=== PATIENT | male | born 1945 | race Caucasian/White ===

== ENCOUNTER 2016-08-09 11:11 | Emergency (ER) | payer OTHER ==
--- NOTE | ~2016-08-09 | CT2 ---
[facility] A Service of [facility] & [facility] RADIOLOGY TEXT RESULTS PATIENT: IGNACIO WEAVER LOCATION: [facility] : 43 UNIT #: [id number] AGE: [address]: Lyla Chino MD SEX: M ORDER DR: [id number] [facility] [address] [place], [place] [address] [id number] E MR#: [id number] Acc #: [id number] NAME: IGNACIO WEAVER. : 1945 SEX: M STUDY DATE/TIME: 08/09/2016 11:33 UNIT: [facility] ROOM: STUDY DESCRIPTION: CT Abd and Pelv W Cont Attending Physician: Lyla Chino M.D. Ordering Physician: Lyla Chino M.D. Primary Care Physician: Farida Valdes M.D. MEDICAL IMAGING REPORT This report is preliminary unless electronic signature is present EXAM CT of the abdomen and pelvis with contrast INDICATIONS Abdominal pain starting last night. Patient has a history of pancreatitis. TECHNIQUE Axial CT imaging was obtained from the dome of the diaphragm through the symphysis pubis following the administration of intravenous contrast material. This CT exam was performed with one or more of the following radiation dose reduction techniques: Automatic exposure control, adjustment of mA and/or kV according to patient size, and iterative reconstruction. FINDINGS Images through the lung bases demonstrates some mild dependant atelectasis. There is a small hiatal hernia. Patient is suspected to have some hepatic steatosis. There is cholelithiasis without any evidence of acute cholecystitis. Spleen appears unremarkable, as is the proximal small bowel. Adrenal glands are within normal limits. Tiny low-attenuation lesion is seen within the inferior pole of the right kidney; this is favored to represent a cyst. While patient reportedly has a history of pancreatitis, the pancreas appears normal on these images. The appendix is visualized and is within normal limits. Prostate gland contains some dystrophic calcifications and is enlarged. There is colonic diverticulosis without any convincing evidence of diverticulitis. Review of bony windows does not demonstrate any aggressive osseous abnormalities. There is probably also a tiny cyst within the inferior pole of the left kidney. STS. [facility] A Service of [facility] RADIOLOGY TEXT RESULTS PATIENT: IGNACIO WEAVER LOCATION: [facility] : 43 UNIT #: [id number] AGE: [address]: Lyla Chino MD SEX: M ORDER DR: IMPRESSION 1. Cholelithiasis without evidence of acute cholecystitis. 2. Suspected diffuse hepatic steatosis, although this is difficult to fully assess on this single-phase examination. 3. Patient reportedly has a history of pancreatitis, although there is no CT evidence of pancreatitis on today's study. Certainly, no peripancreatic fluid collections are seen and the pancreas enhances homogeneously. 4. The appendix is visualized and is within normal limits. 5. Colonic diverticulosis without any evidence of diverticulitis. Dictated by... Nena Reeves M.D. THIS IS AN ELECTRONICALLY VERIFIED REPORT Nena Reeves M.D. at 08/10/2016 4:35 PM AFF/psc TD: 08/09/2016 18:51 JOB #: [id number] MEDICAL IMAGING REPORT Page 1 of 1 COPY
--- NOTE | ~2016-08-09 | CR72 ---
[facility] A Service of [facility] & [facility] RADIOLOGY TEXT RESULTS PATIENT: IGNACIO WEAVER LOCATION: [facility] : 43 UNIT #: [id number] AGE: [address]: Lyla Chino MD SEX: M ORDER DR: [id number] [facility] [address] [place], [place] [address] [id number] E MR#: [id number] Acc #: [id number] NAME: IGNACIO WEAVER. : 1945 SEX: M STUDY DATE/TIME: 08/09/2016 11:12 UNIT: [facility] ROOM: STUDY DESCRIPTION: CR Chest Single View Portable Attending Physician: Lyla Chino M.D. Ordering Physician: Lyla Chino M.D. Primary Care Physician: Farida Valdes M.D. MEDICAL IMAGING REPORT This report is preliminary unless electronic signature is present EXAM Portable chest radiograph INDICATION Fever 1 week. FINDINGS Heart size is within normal limits for portable technique. No pneumothorax, pleural effusion or acute infiltrate is identified. Patient does have a stable calcified granuloma at the left lung base. Dictated by... Nena Reeves M.D. THIS IS AN ELECTRONICALLY VERIFIED REPORT Nena Reeves M.D. at 08/10/2016 4:35 PM AFF/psc TD: 08/09/2016 18:37 JOB #: [id number] MEDICAL IMAGING REPORT Page 1 of 1 COPY
[2016-08-09 10:00] LABS: URINE SOURCE CLEAN CATCH
[2016-08-09 10:04] LABS: URINE APPEARANCE CLEAR; URINE BILIRUBIN NEG (NEG); URINE BLOOD 1+ (NEG); URINE COLOR YELLOW; URINE GLUCOSE >1000 MG/DL (NEG); URINE KETONE 1+ (NEG); URINE LEUKOCYTE ESTERASE NEG (NEG); URINE NITRATE NEG (NEG); URINE PROTEIN TRACE (NEG); URINE SPECIFIC GRAVITY 1.036 (1.003-1.035)
[2016-08-09 10:05] LABS: BASOPHIL# 0.1 X10e3 (0-0.3); BASOPHIL% 0.5 % (0-2.5); EOSINOPHIL% 0.1 % (0.0-7.0); HEMATOCRIT 43.2 % (38.0-50.0); HEMOGLOBIN 14.5 gm/dL (13.0-16.0); LYMPHOCYTE# 0.8 X10e3 (1.0-3.5); LYMPHOCYTE% 7.8 % (17.0-45.0); MEAN CELL VOLUME 89.5 FL (83-96); MEAN CORPUSCULAR HEMOGLOBIN 30.1 PG (28-34); MEAN CORPUSCULAR HGB CONC 33.6 g/dL (30-36); MEAN PLATELET VOLUME 8.2 FL (6.5-11.5); MONOCYTE# 0.4 X10e3 (0-1.0); MONOCYTE% 3.5 % (3.0-12.0); NEUTROPHIL# 9.7 X10e3 (1.5-7.1); NEUTROPHIL% 88.1 % (40-75); PLATELET COUNT 150 X10e3 (140-420); RED BLOOD COUNT 4.83 X10e (3.90-5.60); RED CELL DISTRIBUTION WIDTH 13.3 % (11.0-15.5)
[2016-08-09 10:06] LABS: URINE BACTERIA AUWI NEG (NEGATIVE); URINE SQUAMOUS EPITHELIAL CELL NONE SEEN /[HPF]; UWBCS1 AUWI 0-2 (0-5)
[2016-08-09 10:10] LABS: DIFF IND NO
[2016-08-09 10:13] LABS: CULTURE INDICATED? NO
[2016-08-09 10:34] LABS: ALBUMIN SERUM 4.3 g/dL (3.5-5.0); BILIRUBIN, DIRECT 0.2 mg/dL (0.0-0.2); BILIRUBIN,INDIRECT 0.7 mg/dL (0.0-0.9); BILIRUBIN,TOTAL 0.9 mg/dL (0.2-2.0); BUN/CREATININE RATIO 18.88; CALCIUM SERUM 9.3 mg/dL (8.4-10.2); CREATININE SERUM 0.9 mg/dL (0.6-1.4); PROTEIN TOTAL SERUM 7.5 g/dL (6.0-8.3)
[~2016-08-09 11:11] MED LIST: ASPIRIN81 M1 PO; ASPIRIN81 M2 PO; AVAPRO150 MG PO; BENICAR PO; CREON 101 CA1 PO; CREON 101 CAP PO; DIOVAN PO; OMEPRAZOLE40 M1 PO; OMEPRAZOLE40 MG PO
[2016-08-09 11:47] LABS: AMPHETAMINE NEG (NEG); BARBITURATES NEG (NEG); BENZODIAZEPINES NEG (NEG); COCAINE NEG (NEG); MARIJUANA NEG (NEG); OPIATES NEG (NEG); TRICYCLIC ANTIDEPRESSANTS NEG (NEG); U METHADONE NEG (NEG)
== END 2016-08-09 12:52 | disposition home or self-care (01) ==
LOC: CED 11:11
PROVIDERS: Emergency Medicine
DX: K85.90 Acute pancreatitis without necrosis or infection, unspecified (principal); K86.1 Other chronic pancreatitis; I10 Essential (primary) hypertension; Z98.890 Other specified postprocedural states
CPT/HCPCS: 36415; 71010; 74177; 80048; 80076; 80307; 81003; 83690; 85025; 96361; 96374; 96375; 99284; G0480; J1170; J2405; Q9967

== ENCOUNTER 2016-09-26 00:32 | Emergency (ER) | payer OTHER ==
--- NOTE | ~2016-09-26 | EKG ---
PATIENT: IGNACIO WEAVER UNIT #: [id number] Ventricular Rate: 57 BPM Atrial Rate: 57 BPM P-R Interval: 134 ms QRS Duration: 102 ms Q-T Interval: 496 ms QTC Calculation(Bezet): 482 ms P [place]: 25 degrees Calculated R [place]: 24 degrees Calculated T [place]: 39 degrees Diagnosis Line: Sinus bradycardia Diagnosis Line: Prolonged QT Diagnosis Line: Abnormal ECG Diagnosis Line: No previous ECGs available Diagnosis Line: Confirmed by BRYAN PRIEST MD ([id number]) on Diagnosis Line: 09/26/2016 4:32:10 PM INTERPRETING MD: ZAYDA VILLEGAS
--- NOTE | ~2016-09-26 | CT2 ---
[facility] A Service of [facility] RADIOLOGY TEXT RESULTS PATIENT: IGNACIO WEAVER LOCATION: [facility] : 43 UNIT #: [id number] AGE: [address]: Eduardo Paiz DO SEX: M ORDER DR: [id number] [facility] [address] [place], [place] [address] [id number] E MR#: [id number] Acc #: [id number] NAME: IGNACIO WEAVER. : 1945 SEX: M STUDY DATE/TIME: 09/26/2016 6:26 UNIT: [facility] ROOM: STUDY DESCRIPTION: CT Abd and Pelv W Cont Attending Physician: Eduardo Paiz D.O. Ordering Physician: Carolin Godinez M.D. Primary Care Physician: Farida Valdes M.D. MEDICAL IMAGING REPORT This report is preliminary unless electronic signature is present EXAM CT abdomen and pelvis with contrast 09/26/2016 HISTORY 70-year-old male with abdominal pain and nausea, vomiting beginning yesterday. HISTORY Chronic pancreatitis. COMPARISON STUDIES CT abdomen and pelvis 08/09/2016. TECHNIQUE Helical scan performed through the abdomen and pelvis following administration of oral IV contrast. Coronal and sagittal reformatted images. This CT exam was performed with one or more of the following radiation dose reduction techniques: automatic exposure control, adjustment of mA and/or kV according to patient size, and iterative reconstruction. FINDINGS Visualized lung bases are unremarkable. Small hiatal hernia. Hepatic steatosis again noted. The spleen, pancreas, both adrenal glands, and both kidneys appear within normal limits. No CT evidence of acute pancreatitis. No peripancreatic fluid collections or ductal dilatation. Cholelithiasis is again noted. Abdominal aorta normal in course and caliber without dissection. Small bowel is unremarkable without obstruction. Appendix is normal. Uncomplicated pancolonic diverticulosis. No free fluid or free air. [facility] A Service of [facility] RADIOLOGY TEXT RESULTS PATIENT: IGNACIO WEAVER LOCATION: [facility] : 43 UNIT #: [id number] AGE: [address]: Eduardo Paiz DO SEX: M ORDER DR: Urinary bladder is unremarkable. Prostate gland is enlarged. No free pelvic fluid. No acute bony abnormality. IMPRESSION 1. No CT evidence of acute pancreatitis. No peripancreatic fluid collections or pancreatic ductal dilatation. 2. Cholelithiasis. 3. Hepatic steatosis. 4. Small hiatal hernia. 5. Uncomplicated pancolonic diverticulosis. 6. Normal appendix. 7. Prostate gland enlargement. Dictated by... John Tineo M.D. THIS IS AN ELECTRONICALLY VERIFIED REPORT John Tineo M.D. at 09/27/2016 6:19 AM JOY/zonia TD: 09/26/2016 09:18 JOB #: [id number] MEDICAL IMAGING REPORT Page 1 of 1 COPY
[2016-09-26] MEDS ORDERED: CREON DR 24,001 EACH PO (00:36)
[2016-09-26] MEDS ORDERED: IRBESARTAN150 MG PO (00:37)
[2016-09-26] MEDS ORDERED: PRILOSEC PO (00:37)
[2016-09-26] MEDS ORDERED: LO-DOSE ASPIRIN81 M1 PO (00:37)
[2016-09-26 05:14] LABS: BASOPHIL# 0.1 X10e3 (0-0.3); BASOPHIL% 0.6 % (0-2.5); HEMATOCRIT 43.9 % (38.0-50.0); HEMOGLOBIN 14.5 gm/dL (13.0-16.0); LYMPHOCYTE# 0.6 X10e3 (1.0-3.5); LYMPHOCYTE% 5.8 % (17.0-45.0); MEAN CELL VOLUME 89.4 FL (83-96); MEAN CORPUSCULAR HEMOGLOBIN 29.6 PG (28-34); MEAN CORPUSCULAR HGB CONC 33.1 g/dL (30-36); MEAN PLATELET VOLUME 8.4 FL (6.5-11.5); MONOCYTE# 0.3 X10e3 (0-1.0); MONOCYTE% 2.4 % (3.0-12.0); NEUTROPHIL% 91.2 % (40-75); PLATELET COUNT 116 X10e3 (140-420); RED BLOOD COUNT 4.91 X10e (3.90-5.60)
[2016-09-26 05:26] LABS: DIFF IND NO
[2016-09-26 05:51] LABS: ALBUMIN SERUM 4.6 g/dL (3.5-5.0); BILIRUBIN, DIRECT 0.2 mg/dL (0.0-0.2); BILIRUBIN,TOTAL 1.2 mg/dL (0.2-2.0); CALCIUM SERUM 9.3 mg/dL (8.4-10.2); GLOM FILT RATE Estimated 74.9 mL/min (>60); POTASSIUM 4.2 mmol/L (3.5-5.1); PROTEIN TOTAL SERUM 7.6 g/dL (6.0-8.3)
[2016-09-26 07:15] LABS: URINE SOURCE CLEAN CATCH
[2016-09-26 07:23] LABS: URINE APPEARANCE CLEAR; URINE BILIRUBIN NEG (NEG); URINE BLOOD NEG (NEG); URINE COLOR YELLOW; URINE GLUCOSE 500 MG/DL (NEG); URINE KETONE 2+ (NEG); URINE LEUKOCYTE ESTERASE NEG (NEG); URINE NITRATE NEG (NEG); URINE PH 7.5 (5-8); URINE PROTEIN NEG (NEG); URINE SPECIFIC GRAVITY 1.042 (1.003-1.035)
[2016-09-26 07:28] LABS: CULTURE INDICATED? NO
== END 2016-09-26 08:57 | disposition home or self-care (01) ==
LOC: CED 00:32
DX: R10.9 Unspecified abdominal pain (principal); I10 Essential (primary) hypertension; R79.89 Other specified abnormal findings of blood chemistry
CPT/HCPCS: 36415; 74177; 80048; 80076; 81003; 82150; 83690; 84484; 85025; 93005; 96361; 96374; 96375; 99284; J1170; J2270; J2405; Q9967

== ENCOUNTER 2016-10-31 08:36 | Emergency (ER) | payer OTHER ==
--- NOTE | ~2016-10-31 | US67 ---
[facility] A Service of [facility] & [facility] RADIOLOGY TEXT RESULTS PATIENT: IGNACIO WEAVER LOCATION: [facility] : 43 UNIT #: [id number] AGE: [address]: Kash Joiner MD SEX: M ORDER DR: [id number] [facility] [address] [place], [place] [address] [id number] E MR#: [id number] Acc #: [id number] NAME: IGNACIO WEAVER. : 1945 SEX: M STUDY DATE/TIME: 10/31/2016 9:35 UNIT: [facility] ROOM: STUDY DESCRIPTION: Gallbladder Attending Physician: Kash Joiner M.D. Ordering Physician: Kash Joiner M.D. Primary Care Physician: Farida Valdes M.D. MEDICAL IMAGING REPORT This report is preliminary unless electronic signature is present EXAM Gallbladder ultrasound HISTORY Right upper quadrant pain for 6 days radiating to the back. FINDINGS Longitudinal and transverse sonograms of the right upper quadrant were obtained. The liver is sonographically normal. There is sludge and gallstones dependently within the gallbladder. Gallbladder wall is not thickened. There is no pericholecystic fluid. There is no evidence of intra or extrahepatic biliary dilatation. Common duct measures 4.0 mm. No fluid collections are seen in the right upper quadrant. The right kidney is normal measuring 10.9 cm in diameter. The pancreas was not well seen. CONCLUSION Cholelithiasis. No evidence of gallbladder wall thickening and no evidence of surrounding fluid to suggest cholecystitis. Sonogram is otherwise normal. Dictated by... Jean Claude Patrick M.D. THIS IS AN ELECTRONICALLY VERIFIED REPORT Jean Claude Patrick M.D. at 11/02/2016 8:39 AM Kiel TD: 10/31/2016 14:27 JOB #: [id number] MEDICAL IMAGING REPORT Page 1 of 1 COPY
[~2016-10-31 08:36] MED LIST changes: +CREON DR 24,001 EACH PO; +IRBESARTAN150 MG PO; +LO-DOSE ASPIRIN81 M1 PO; +PRILOSEC PO
[2016-10-31 09:39] LABS: BASOPHIL% 0.5 % (0-2.5); EOSINOPHIL# 0.1 X10e3 (0-0.7); EOSINOPHIL% 2.2 % (0.0-7.0); HEMATOCRIT 41.8 % (38.0-50.0); HEMOGLOBIN 13.9 gm/dL (13.0-16.0); LYMPHOCYTE# 0.8 X10e3 (1.0-3.5); LYMPHOCYTE% 16.3 % (17.0-45.0); MEAN CELL VOLUME 89.7 FL (83-96); MEAN CORPUSCULAR HEMOGLOBIN 29.9 PG (28-34); MEAN CORPUSCULAR HGB CONC 33.3 g/dL (30-36); MEAN PLATELET VOLUME 8.7 FL (6.5-11.5); MONOCYTE# 0.4 X10e3 (0-1.0); MONOCYTE% 7.6 % (3.0-12.0); NEUTROPHIL# 3.6 X10e3 (1.5-7.1); NEUTROPHIL% 73.4 % (40-75); PLATELET COUNT 109 X10e3 (140-420); RED BLOOD COUNT 4.66 X10e (3.90-5.60); RED CELL DISTRIBUTION WIDTH 14.2 % (11.0-15.5); WHITE BLOOD COUNT 4.9 X10e3 (4.0-10.5)
[2016-10-31 09:47] LABS: DIFF IND NO
[2016-10-31 09:56] LABS: URINE SOURCE CLEAN CATCH
[2016-10-31 10:01] LABS: ALBUMIN SERUM 4.6 g/dL (3.5-5.0); BILIRUBIN, DIRECT 0.2 mg/dL (0.0-0.2); BILIRUBIN,INDIRECT 0.9 mg/dL (0.0-0.9); BILIRUBIN,TOTAL 1.1 mg/dL (0.2-2.0); CALCIUM SERUM 9.4 mg/dL (8.4-10.2); CREATININE SERUM 0.9 mg/dL (0.6-1.4); GLOM FILT RATE Estimated 84.4 mL/min (>60); POTASSIUM 4.4 mmol/L (3.5-5.1); PROTEIN TOTAL SERUM 7.6 g/dL (6.0-8.3)
[2016-10-31 10:03] LABS: URINE APPEARANCE CLEAR; URINE BILIRUBIN NEG (NEG); URINE BLOOD NEG (NEG); URINE COLOR YELLOW; URINE GLUCOSE NEG (NEG); URINE KETONE TRACE (NEG); URINE LEUKOCYTE ESTERASE NEG (NEG); URINE NITRATE NEG (NEG); URINE PROTEIN NEG (NEG); URINE SPECIFIC GRAVITY 1.024 (1.003-1.035)
[2016-10-31 10:11] LABS: CULTURE INDICATED? NO
== END 2016-10-31 11:44 | disposition home or self-care (01) ==
LOC: CED 08:36
PROVIDERS: Emergency Medicine
DX: R10.11 Right upper quadrant pain (principal); R11.0 Nausea; Z79.82 Long term (current) use of aspirin; Z79.899 Other long term (current) drug therapy
CPT/HCPCS: 36415; 76705; 80048; 80076; 81003; 82150; 83690; 85025; 96361; 96372; 96374; 96375; 99284; J1170; J2405; J2550

== ENCOUNTER 2016-11-05 06:26 | Inpatient (IN) | payer OTHER ==
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
--- NOTE | ~2016-11-05 | DS ---
Unit #: [id number] #: [id number] Patient: IGNACIO WEAVER [id number] [address] [address] [id number] I MR#: [id number] NAME: IGNACIO WEAVER ROOM: 479 Age: 71 Sex: M Admission Date: 11/05/2016 : 1945 Discharge Date: 11/09/2016 Attending Physician: Franco Mcmullen M.D. Primary Care Physician: Farida Valdes M.D. DISCHARGE SUMMARY DIAGNOSIS Cholecystitis. PROCEDURE Open cholecystectomy. HOSPITAL COURSE The patient is a 71-year-old gentleman who presented with choledocholithiasis, presented with cholecystitis. He underwent attempted laparoscopic cholecystectomy, ended up undergoing open cholecystectomy. He had a previous elevated LFT, underwent ERCP prior. His postoperatively course was relatively uncomplicated. His Brandon-Islas drained serous fluid and was removed prior to discharge. DISPOSITION The patient is discharged home in good condition. He is to follow a regular diet as tolerated. Activities were discussed. He is to follow up with Dr. Burns in two weeks. MEDICATIONS Regular home medications and [place] 7.5 mg q.4 p.r.n. Dictated by... Jean Claude Olvera M.D. ROSI/joshua TD: 11/11/2016 07:19 JOB #: [id number] DISCHARGE SUMMARY Page 1 of 1 X Jean Claude Olvera MD X DISCHARGE SUMMARY
--- NOTE | ~2016-11-05 | OR ---
Unit #: [id number] #: [id number] Patient: IGNACIO WEAVER [id number] [address] [place], [place] [address] [id number] I MR#: [id number] NAME: IGNACIO WEAVER ROOM: 479 Date of Procedure: 11/05/2016 Admission Date: 11/05/2016 Surgeon: Timothy Burns Jr., M.D. : 1945 Attending Physician: Franco Mcmullen M.D. Primary Care Physician: Farida Valdes M.D. OPERATIVE REPORT INDICATION FOR PROCEDURE The patient is a 71-year-old white male, who was admitted with evidence of acute cholecystitis. He was noted to have elevated liver function tests, underwent ERCP yesterday and stones were extracted. He was noted to have what appeared to be some pus in the gallbladder duct. It was felt that the patient did have acute cholecystitis, brought to the operating room at this time for laparoscopic cholecystectomy. His liver function tests are still somewhat elevated. PREOPERATIVE DIAGNOSES Acute and chronic cholecystitis with cholelithiasis and choledocholithiasis. POSTOPERATIVE DIAGNOSES Severe inflammatory changes of the gallbladder and in the area of the krissy hepatis with severe acute cholecystitis. ANESTHESIA General with endotracheal intubation and 0.5% Marcaine with epinephrine locally. PROCEDURES PERFORMED Laparoscopic cholecystectomy converted to open cholecystectomy with lysis of adhesions. DESCRIPTION OF PROCEDURE The patient was positioned in supine position. After being anesthetized and intubated, he was prepped and draped in routine fashion for laparoscopic cholecystectomy. A small supraumbilical incision was made approximately a cm in length. This was carried down to the fascia. The fascia and umbilicus lifted with a towel clip, and a Veress needle introduced into the abdomen. The abdomen was then inflated with CO2 gas. A 5-mm port was introduced in the abdomen followed by the camera. There was no evidence of any injury related to introduction of the port or the Veress needle. Brief intra-abdominal exploration was carried out. The patient was noted to have bilateral inguinal hernias. The one on the right was indirect and one on the left direct. Also, there was a severely inflamed gallbladder present. Liver appeared normal. Two 5-mm ports were placed laterally and 11-mm port just to the right of the upper midline. The gallbladder was lifted. Dissection was attempted in the area of the triangle of Calot and krissy hepatis, but there was severe fibrosis with acute inflammation and some bleeding at this point. After it was obvious Unit #: [id number] #: [id number] Patient: IGNACIO WEAVER the gallbladder could not be removed due to inability to identify the structures such as the cystic duct and artery and the common duct, the operation was converted to open and a transverse incision approximately 4 inch in length was made in the right subcostal region. This was carried down through subcutaneous tissue and the anterior rectus sheath with the Bovie cautery. The right rectus abdominis muscle was partially transected with the Bovie cautery and the posterior rectus sheath opened. The remainder of the sheath was opened with the cutting edge of the Bovie cautery. Intra-abdominal exploration was carried out and the patient was noted to have a large amount of blood possibly 300 to 400 mL in the right upper quadrant which was suctioned and removed and severe inflammatory changes especially in the area of the triangle of Calot. Meticulous dissection was carried out with the right angle and what appeared to be the cystic artery was hemoclipped x3, and divided. Cystic duct which was somewhat dilated and severely fibrotic was isolated and the rest of the tissue taken down with the Bovie cautery and hemoclips were appropriate. After dissecting the gallbladder down to its cystic duct area, the cystic duct was transected and the gallbladder was removed and sent to pathology. The cystic duct was then ligated approximately 0.5 cm to a cm away from the common duct. This was done with 2-0 silk suture and a large hemoclip was then placed in the area also. After hemostasis was noted, the abdomen was copiously irrigated with saline solution. All lap packs were removed and lap count correct x3 and a 10 mm Brandon-Islas drain was brought out through one of the lateral port sites, placed in the subhepatic space and sutured to the skin with 2-0 silk suture. The area of the gallbladder bed and cystic duct and cystic artery was rechecked with no evidence of any bleeding or leaks. The posterior rectus sheath was then closed with a continuous #1 Vicryl suture. Anterior rectus sheath was closed with interrupted #1 Vicryl sutures. The wound was irrigated and after hemostasis was achieved with Bovie cautery, skin edges were approximated with stainless-steel skin clips. All the other wounds were also closed with stainless-steel skin clips. Sterile dressings were applied externally. Estimated blood loss approximately 800 mL. The patient received approximately 3000 mL crystalloid solution during the procedure. Sponges and instrument counts were correct x3. One Brandon-Islas drain used as noted above. No complications. The patient was taken to recovery room with stable vital signs in satisfactory condition. Dictated by... Timothy Burns Jr., M.D. JMB/lynette TD: 11/08/2016 03:45 JOB #: [id number] CC: Farida Valdes M.D. OPERATIVE REPORT Page 1 of 1 X Timothy Burns MD X PROCEDURE OPERATIVE NOTE
--- NOTE | ~2016-11-05 | OR ---
Unit #: [id number] #: [id number] Patient: IGNACIO WEAVER [id number] [address] [place], [place] [address] [id number] I MR#: [id number] NAME: IGNACIO WEAVER. ROOM: 479 Date of Procedure: 11/06/2016 Admission Date: 11/05/2016 Surgeon: Mohit Reid M.D. : 1945 Attending Physician: Franco Mcmullen M.D. Primary Care Physician: Farida Valdes M.D. OPERATIVE REPORT . PROCEDURE PERFORMED Esophagogastroduodenoscopy to descending duodenum and endoscopic retrograde cholangiopancreatography with sphincterotomy, balloon extraction of multiple stones and pus as well as stenting of common bile duct with a 7 x 7 common bile duct stent. INDICATIONS FOR PROCEDURE The patient presented with acute abdominal pain, obstructive jaundice, gallstones suggestive of possible ductal stones and obstruction, undergoing evaluation with upper endoscopy and ERCP. MEDICATIONS Monitored anesthesia. POSTOPERATIVE FINDINGS 1. EGD exam shows mild esophagitis, hiatal hernia, as well as mild gastritis. 2. ERCP shows biliary dilation and filling defects. 3. Sphincterotomy was performed at 12 o'clock position. 4. Balloon extraction of pus and multiple stones. 5. 7 x 7 stent placed across the biliary duct. 6. PD was not injected. PLAN Antibiotics, supportive care, lap xaveir per surgery, stent removal after 6 weeks. DESCRIPTION OF PROCEDURE The patient was explained of the procedure, risks, and benefits along with risks and benefits of anesthesia. He was brought to the endoscopy room. Propofol anesthesia was given. EGD was done first. Scope was passed down the mouth into the esophagus, stomach, duodenum, and distal duodenum. Findings as described. No biopsies were taken. Gently, I pulled the scope out of the patient's mouth. He tolerated it well. At this time, we used a side-viewing ERCP scope was passed down the mouth into the esophagus, stomach. Ampulla was visualized. There was some pus coming out of the ampulla. At this point, I cannulated the bile duct selectively. After a few attempts, there were multiple filling defects in the duct. At this point, we performed a sphincterotomy at 12 o'clock Unit #: [id number] #: [id number] Patient: IGNACIO WEAVER G position. Balloon extraction was then carried out. Pus and lot of the soft stones were extracted. Cholangiogram obtained was then clear. Cystic duct was patent. Gallbladder was filling with contrast showing multiple filling defects suggestive of gallbladder stones. At this point, we placed a 7 x 7 CBD stent across the duct under fluoroscopic guidance. Pancreatic duct was not injected. Gently, I pulled the scope out. The patient's stomach was decompressed. He tolerated it well. No major complications were seen. Dictated by... Angela Garcia/lynette TD: 11/07/2016 06:02 JOB #: [id number] OPERATIVE REPORT Page 1 of 1 X Mohit Reid MD X PROCEDURE OPERATIVE NOTE
--- NOTE | ~2016-11-05 | CR84 ---
[facility] A Service of [facility] & [facility] RADIOLOGY TEXT RESULTS PATIENT: IGNACIO WEAVER LOCATION: [place] [address] : [birth year] UNIT #: [id number] AGE: [address]: Franco Mcmullen SEX: M ORDER DR: [id number] [facility] [address] [place], [place] [address] [id number] I MR#: [id number] Acc #: [id number] NAME: IGNACIO WEAVER. : 1945 SEX: M STUDY DATE/TIME: 11/06/2016 8:58 UNIT: [facility] ROOM: [facility] STUDY DESCRIPTION: CR ERCP Biliary and Pancr SI Attending Physician: Franco Mcmullen M.D. Ordering Physician: Mohit Reid M.D. Primary Care Physician: Farida Valdes M.D. MEDICAL IMAGING REPORT This report is preliminary unless electronic signature is present EXAM ERCP, 11/06/2016. HISTORY Common bile duct stones and obstruction. Right upper quadrant abdominal pain since 10/25/2016, radiating to the back. Gallbladder ultrasound 10/31/2016 demonstrated cholelithiasis. FINDINGS ERCP was performed by Dr. Reid. Three spot film radiographs of the right upper quadrant were obtained and 2 minutes and 24 seconds of fluoroscopy time was utilized. The pancreatic duct was not injected. Contrast injection of the biliary tree shows dilatation of the common bile duct. Filling defects suggesting stones were present in the duct. Sphincterotomy was performed by Dr. Reid. Balloon catheter was pulled retrograde through the common duct, removing stones as per Dr. Reid. A stent was then placed in the common bile duct at the end of the exam. Dictated by... Rashad Arredondo M.D. THIS IS AN ELECTRONICALLY VERIFIED REPORT Rashad Arredondo M.D. at 11/07/2016 2:16 PM RASHI/artem TD: 11/07/2016 03:18 JOB #: [id number] MEDICAL IMAGING REPORT Page 1 of 1 COPY
[2016-11-05 08:16] LABS: ALBUMIN SERUM 4.6 g/dL (3.5-5.0); BILIRUBIN,TOTAL 3.5 mg/dL (0.2-2.0); BUN/CREATININE RATIO 21.11; CALCIUM SERUM 9.5 mg/dL (8.4-10.2); CREATININE SERUM 0.9 mg/dL (0.6-1.4); GLOM FILT RATE Estimated 84.4 mL/min (>60); POTASSIUM 4.3 mmol/L (3.5-5.1)
[2016-11-05 09:47] LABS: BASOPHIL% 0.4 % (0-2.5); EOSINOPHIL% 0.1 % (0.0-7.0); HEMATOCRIT 42.9 % (38.0-50.0); HEMOGLOBIN 14.7 gm/dL (13.0-16.0); LYMPHOCYTE# 0.5 X10e3 (1.0-3.5); LYMPHOCYTE% 8.5 % (17.0-45.0); MEAN CELL VOLUME 88.8 FL (83-96); MEAN CORPUSCULAR HEMOGLOBIN 30.4 PG (28-34); MEAN CORPUSCULAR HGB CONC 34.2 g/dL (30-36); MEAN PLATELET VOLUME 8.8 FL (6.5-11.5); MONOCYTE# 0.3 X10e3 (0-1.0); MONOCYTE% 4.8 % (3.0-12.0); NEUTROPHIL% 86.2 % (40-75); PLATELET COUNT 152 X10e3 (140-420); RED BLOOD COUNT 4.83 X10e (3.90-5.60); RED CELL DISTRIBUTION WIDTH 13.5 % (11.0-15.5); WHITE BLOOD COUNT 5.8 X10e3 (4.0-10.5)
[2016-11-05 09:51] LABS: INR 1.1; PROTHROMBIN TIME (PATIENT) 11.9 SECONDS (9.5-12.4)
[2016-11-05 09:55] LABS: DIFF IND NO
[2016-11-05 09:58] LABS: PARTIAL THROMBOPLASTIN TIME 26.3 SECONDS (25.6-38.1)
[2016-11-06 03:22] LABS: HEMATOCRIT 40.5 % (38.0-50.0); HEMOGLOBIN 13.7 gm/dL (13.0-16.0); MEAN CORPUSCULAR HGB CONC 33.8 g/dL (30-36); MEAN PLATELET VOLUME 8.4 FL (6.5-11.5); RED BLOOD COUNT 4.55 X10e (3.90-5.60); RED CELL DISTRIBUTION WIDTH 13.6 % (11.0-15.5); WHITE BLOOD COUNT 5.6 X10e3 (4.0-10.5)
[2016-11-06 03:57] LABS: ALBUMIN SERUM 3.8 g/dL (3.5-5.0); BILIRUBIN,TOTAL 5.3 mg/dL (0.2-2.0); BUN/CREATININE RATIO 16.66; CALCIUM SERUM 8.7 mg/dL (8.4-10.2); CREATININE SERUM 0.6 mg/dL (0.6-1.4); GLOM FILT RATE Estimated 99.8 mL/min (>60); POTASSIUM 4.8 mmol/L (3.5-5.1); PROTEIN TOTAL SERUM 6.8 g/dL (6.0-8.3)
[2016-11-07 03:06] LABS: HEMATOCRIT 35.6 % (38.0-50.0); HEMOGLOBIN 11.9 gm/dL (13.0-16.0); MEAN CELL VOLUME 88.7 FL (83-96); MEAN CORPUSCULAR HEMOGLOBIN 29.8 PG (28-34); MEAN CORPUSCULAR HGB CONC 33.6 g/dL (30-36); MEAN PLATELET VOLUME 8.7 FL (6.5-11.5); RED BLOOD COUNT 4.01 X10e (3.90-5.60); WHITE BLOOD COUNT 3.5 X10e3 (4.0-10.5)
[2016-11-07 03:38] LABS: ALBUMIN SERUM 3.2 g/dL (3.5-5.0); BILIRUBIN,TOTAL 3.4 mg/dL (0.2-2.0); BUN/CREATININE RATIO 8.57; CALCIUM SERUM 8.4 mg/dL (8.4-10.2); CREATININE SERUM 0.7 mg/dL (0.6-1.4); GLOM FILT RATE Estimated 93.7 mL/min (>60); POTASSIUM 3.6 mmol/L (3.5-5.1); PROTEIN TOTAL SERUM 5.9 g/dL (6.0-8.3)
[2016-11-07 11:06] LABS: HEMATOCRIT 35.2 % (38.0-50.0); HEMOGLOBIN 11.7 gm/dL (13.0-16.0); MEAN CELL VOLUME 90.4 FL (83-96); MEAN CORPUSCULAR HEMOGLOBIN 30.1 PG (28-34); MEAN CORPUSCULAR HGB CONC 33.3 g/dL (30-36); MEAN PLATELET VOLUME 8.4 FL (6.5-11.5); RED BLOOD COUNT 3.89 X10e (3.90-5.60); RED CELL DISTRIBUTION WIDTH 13.6 % (11.0-15.5)
[2016-11-07 11:13] LABS: WHITE BLOOD COUNT 8.9 X10e3 (4.0-10.5)
[2016-11-07 20:31] LABS: HEMATOCRIT 37.7 % (38.0-50.0); HEMOGLOBIN 12.6 gm/dL (13.0-16.0)
[2016-11-08 03:52] LABS: BASOPHIL% 0.3 % (0-2.5); EOSINOPHIL% 0.1 % (0.0-7.0); HEMATOCRIT 36.7 % (38.0-50.0); HEMOGLOBIN 12.4 gm/dL (13.0-16.0); LYMPHOCYTE% 11.1 % (17.0-45.0); MEAN CELL VOLUME 88.8 FL (83-96); MEAN CORPUSCULAR HEMOGLOBIN 29.9 PG (28-34); MEAN CORPUSCULAR HGB CONC 33.7 g/dL (30-36); MEAN PLATELET VOLUME 8.6 FL (6.5-11.5); MONOCYTE# 0.6 X10e3 (0-1.0); MONOCYTE% 6.6 % (3.0-12.0); NEUTROPHIL# 7.1 X10e3 (1.5-7.1); NEUTROPHIL% 81.9 % (40-75); PLATELET COUNT 142 X10e3 (140-420); RED BLOOD COUNT 4.13 X10e (3.90-5.60); RED CELL DISTRIBUTION WIDTH 13.8 % (11.0-15.5); WHITE BLOOD COUNT 8.6 X10e3 (4.0-10.5)
[2016-11-08 03:54] LABS: DIFF IND NO
[2016-11-08 04:17] LABS: ALBUMIN SERUM 3.2 g/dL (3.5-5.0); BILIRUBIN,TOTAL 3.2 mg/dL (0.2-2.0); BUN/CREATININE RATIO 11.11; CALCIUM SERUM 8.5 mg/dL (8.4-10.2); CREATININE SERUM 0.9 mg/dL (0.6-1.4); GLOM FILT RATE Estimated 84.4 mL/min (>60); POTASSIUM 4.1 mmol/L (3.5-5.1); PROTEIN TOTAL SERUM 5.8 g/dL (6.0-8.3)
[2016-11-09 02:59] LABS: HEMATOCRIT 30.2 % (38.0-50.0); MEAN CELL VOLUME 88.6 FL (83-96); MEAN CORPUSCULAR HEMOGLOBIN 30.3 PG (28-34); MEAN CORPUSCULAR HGB CONC 34.2 g/dL (30-36); MEAN PLATELET VOLUME 8.4 FL (6.5-11.5); RED BLOOD COUNT 3.41 X10e (3.90-5.60); RED CELL DISTRIBUTION WIDTH 13.7 % (11.0-15.5); WHITE BLOOD COUNT 5.5 X10e3 (4.0-10.5)
[2016-11-09 03:07] LABS: HEMOGLOBIN 10.3 gm/dL (13.0-16.0)
[2016-11-09 03:25] LABS: ALBUMIN SERUM 2.7 g/dL (3.5-5.0); BILIRUBIN,TOTAL 1.5 mg/dL (0.2-2.0); BUN/CREATININE RATIO 8.75; CREATININE SERUM 0.8 mg/dL (0.6-1.4); GLOM FILT RATE Estimated 88.7 mL/min (>60); POTASSIUM 3.5 mmol/L (3.5-5.1); PROTEIN TOTAL SERUM 5.3 g/dL (6.0-8.3)
[2016-11-09] MEDS ORDERED: HYDROCODON-ACE1 EAC9 PO (10:02)
== END 2016-11-09 10:55 | disposition home or self-care (01) | DRG 416 ==
LOC: SED 06:26 → SEDOF 09:38 → C4C 09:40 → SEDOF 10:52 → C5C 10:52 → SEDOF 10:54 → C5C 10:54 → C4C 12:29 → SEDOF 12:29 → C4C 11-07 10:30
PROVIDERS: Emergency Medicine; Internal Medicine; Surgery
PROC: 0FJ44ZZ Inspection of Gallbladder, Percutaneous Endoscopic Approach (ICD-10-PCS; 2016-11-07)
PROC: 0W9G00Z Drainage of Peritoneal Cavity with Drainage Device, Open Approach (ICD-10-PCS; 2016-11-07)
PROC: 0DJ08ZZ Inspection of Upper Intestinal Tract, Via Natural or Artificial Opening Endoscopic (ICD-10-PCS; 2016-11-07)
PROC: 0FC98ZZ Extirpation of Matter from Common Bile Duct, Via Natural or Artificial Opening Endoscopic (ICD-10-PCS; 2016-11-07)
PROC: 0F798DZ Dilation of Common Bile Duct with Intraluminal Device, Via Natural or Artificial Opening Endoscopic (ICD-10-PCS; 2016-11-07)
PROC: BF10YZZ Fluoroscopy of Bile Ducts using Other Contrast (ICD-10-PCS; 2016-11-07)
PROC: 30233N1 Transfusion of Nonautologous Red Blood Cells into Peripheral Vein, Percutaneous Approach (ICD-10-PCS; principal; 2016-11-07 08:30)
PROC: 0FT40ZZ Resection of Gallbladder, Open Approach (ICD-10-PCS; 2016-11-07 08:30)
DX: K80.66 Calculus of gallbladder and bile duct with acute and chronic cholecystitis without obstruction (principal); I10 Essential (primary) hypertension; Z79.82 Long term (current) use of aspirin; M19.90 Unspecified osteoarthritis, unspecified site; Z80.1 Family history of malignant neoplasm of trachea, bronchus and lung; Z82.49 Family history of ischemic heart disease and other diseases of the circulatory system; Z82.3 Family history of stroke; K20.9 Esophagitis, unspecified; K44.9 Diaphragmatic hernia without obstruction or gangrene; K40.90 Unilateral inguinal hernia, without obstruction or gangrene, not specified as recurrent
CPT/HCPCS: 36415; 74330; 80053; 82150; 82947; 83690; 85014; 85018; 85025; 85027; 85610; 85730; 86850; 86900; 86901; 86923; 88304; 94010; 96361; 96374; 96375; 99285; C9113; J0295; J0330; J0690; J1100; J1170; J1610; J1815; J2250; J2270; J2405; J2710; J3010; J3490; P9016

== ENCOUNTER → 2016-12-22 | Day surgery (SDC) | payer OTHER ==
[~2016-12-22] MED LIST changes: +HYDROCODON-ACE1 EAC9 PO
--- NOTE | ~2016-12-22 | CR84 ---
[facility] A Service of [facility] & [facility] RADIOLOGY TEXT RESULTS PATIENT: IGNACIO WEAVER LOCATION: [facility] : 41 UNIT #: [id number] AGE: [address]: Mohit Reid MD SEX: M ORDER DR: [id number] [facility] [address]. [place], [place] [address] [id number] O MR#: [id number] Acc #: [id number] NAME: IGNACIO WEAVER. : 1945 SEX: M STUDY DATE/TIME: 12/22/2016 9:56 UNIT: [facility] ROOM: STUDY DESCRIPTION: CR ERCP Biliary and Pancr SI Attending Physician: Mohit Reid M.D. Ordering Physician: Mohit Reid M.D. Primary Care Physician: Farida Valdes M.D. MEDICAL IMAGING REPORT This report is preliminary unless electronic signature is present EXAM ERCP 12/22/2016 HISTORY ERCP performed for stent removal. History of common bile duct stenosis and obstruction. FINDINGS ERCP was performed by Dr. Reid. Nine spot film radiographs of the right upper quadrant were obtained and 1 minute 50 seconds of fluoroscopy time was utilized. Surgical clips are seen in the right upper quadrant from prior cholecystectomy. The pancreatic duct was not injected. Contrast injection of the biliary tree shows dilatation of the common bile duct to 1 cm. No filling defects or strictures were seen. Balloon catheter was pulled retrograde through the common bile duct but no stones were obtained, as per Dr. Reid. No stent was seen. Dictated by... Rashad Arredondo M.D. THIS IS AN ELECTRONICALLY VERIFIED REPORT Rashad Arredondo M.D. at 12/23/2016 7:28 AM KRT/yury TD: 12/22/2016 21:58 JOB #: [id number] MEDICAL IMAGING REPORT Page 1 of 1 COPY
--- NOTE | ~2016-12-22 | OR ---
Unit #: [id number] #: [id number] Patient: IGNACIO WEAVER [id number] [address] [place], [place] [address] [id number] O MR#: [id number] NAME: IGNACIO WEAVER ROOM: Date of Procedure: 12/22/2016 Admission Date: 12/22/2016 Surgeon: Mohit Reid M.D. : 1945 Attending Physician: Mohit Reid M.D. Primary Care Physician: Farida Valdes M.D. OPERATIVE REPORT PROCEDURE PERFORMED Esophagogastroduodenoscopy with biopsy and endoscopic retrograde cholangiopancreatography. INDICATIONS FOR PROCEDURE A 71-year-old gentleman, recent admission with severe cholangitis, common bile duct stone as well as cholecystitis, where he had an ERCP and stent placement along with open cholecystectomy, now undergoing evaluation for removal of the stent as well as possible any remaining stones in the common bile cut. Also, he has a history of esophageal stricture, previously dilated. MEDICATIONS Monitored anesthesia. POSTOPERATIVE FINDINGS 1. Esophageal ring and hiatal hernia. 2. Chronic appearing gastritis, biopsies taken. 3. No stent was seen extending out of the ampulla. It must have fallen out. 4. Common bile duct was mildly dilated to about 10 mm. 5. No filling defects seen. 6. Balloon extraction was carried out. No stones or sludge was extract. PLAN Follow up with clinically as well as with LFTs. Continue PPI therapy. Follow up on the pathology report. DESCRIPTION OF PROCEDURE The patient was explained of the procedure, risks, and benefits along with risks and benefits of anesthesia. He was brought to the endoscopy room. Propofol anesthesia was given. Bite block was placed. The scope was passed down the mouth into the esophagus, stomach, duodenum, and distal duodenum. Findings as described. Biopsies taken. Gently, the scope was pulled out. He tolerated it well. At this time, we passed a side-viewing ERCP scope down the mouth into the esophagus and stomach. Ampulla was visualized. No stent was seen extending out of it. duct either on x-ray films. I cannulated the bile duct, which was then injected. Dilation was noted, but no filling defects were seen. Balloon extraction was then carried out. No stones or sludge was extracted. 9 mm balloon through the Unit #: [id number] #: [id number] Patient: IGNACIO WEAVER opening Gently, the scope was pulled out. Stomach was decompressed. He tolerated the procedure well. No major complications were seen. Dictated by... Angela Garcia/lynette TD: 12/22/2016 12:49 JOB #: [id number] OPERATIVE REPORT Page 1 of 1 X Mohit Reid MD X PROCEDURE OPERATIVE NOTE
[2016-12-22 12:01] LABS: BASOPHIL% 0.9 % (0-2.5); EOSINOPHIL# 0.1 X10e3 (0-0.7); EOSINOPHIL% 2.7 % (0.0-7.0); HEMATOCRIT 38.2 % (38.0-50.0); HEMOGLOBIN 12.8 gm/dL (13.0-16.0); LYMPHOCYTE# 0.9 X10e3 (1.0-3.5); MEAN CELL VOLUME 90.1 FL (83-96); MEAN CORPUSCULAR HEMOGLOBIN 30.3 PG (28-34); MEAN CORPUSCULAR HGB CONC 33.6 g/dL (30-36); MEAN PLATELET VOLUME 7.9 FL (6.5-11.5); MONOCYTE# 0.2 X10e3 (0-1.0); MONOCYTE% 5.6 % (3.0-12.0); NEUTROPHIL# 2.1 X10e3 (1.5-7.1); NEUTROPHIL% 63.8 % (40-75); PLATELET COUNT 130 X10e3 (140-420); RED BLOOD COUNT 4.24 X10e (3.90-5.60); RED CELL DISTRIBUTION WIDTH 14.4 % (11.0-15.5); WHITE BLOOD COUNT 3.3 X10e3 (4.0-10.5)
[2016-12-22 12:04] LABS: DIFF IND NO
[2016-12-22 12:28] LABS: ALBUMIN SERUM 4.1 g/dL (3.5-5.0); BILIRUBIN,TOTAL 0.6 mg/dL (0.2-2.0); CREATININE SERUM 0.8 mg/dL (0.6-1.4); GLOM FILT RATE Estimated 88.7 mL/min (>60); POTASSIUM 4.2 mmol/L (3.5-5.1); PROTEIN TOTAL SERUM 6.7 g/dL (6.0-8.3)
== END | disposition home or self-care (01) ==
LOC: COPS 08:19
PROVIDERS: Internal Medicine
DX: K29.50 Unspecified chronic gastritis without bleeding (principal); K22.2 Esophageal obstruction; K44.9 Diaphragmatic hernia without obstruction or gangrene; I10 Essential (primary) hypertension; J30.2 Other seasonal allergic rhinitis; Z86.010 Personal history of colon polyps; Z90.49 Acquired absence of other specified parts of digestive tract; Z98.890 Other specified postprocedural states; Z79.899 Other long term (current) drug therapy; Z79.82 Long term (current) use of aspirin
CPT/HCPCS: 74330; 80053; 85025; 88305; 88312